=== PATIENT | male | born 1965 | race Caucasian/White ===

== ENCOUNTER 2020-10-10 16:05 | Emergency (ER) | payer OTHER ==
[~2020-10-10] VITALS: Ht 172.7 cm; Wt 102.1 kg
[~2020-10-10 16:05] MED LIST: AMARYL4 MG PO; DOXYCYCLINE 10100 MG PO; GLUCOPHAGE500 MG PO; IBUPROFEN 200200 M1 PO; IBUPROFEN 800800 MG PO; KEFLEX500 MG PO; LEVEMIR SQ; LISINOPRIL20 MG PO; NORCO 5-325 TA1 EACH PO; NORFLEX100 MG PO; PERCOCET 5-3251 EACH PO
[2020-10-10] MEDS ORDERED: NORVASC10 MG PO (16:27)
[2020-10-10] MEDS ORDERED: COZAAR 25 MG TA25 M1 PO (16:27)
[2020-10-10] MEDS ORDERED: TRAMADOL 50 MG50 MG PO (16:28)
[2020-10-10] MEDS ORDERED: CEPHALEXIN500 MG PO (17:37)
[2020-10-10 17:43] VITALS: BP 142/54
== END 2020-10-10 17:44 | disposition home or self-care (01) ==
LOC: M.ERS 16:05
DX: S61.211A Laceration without foreign body of left index finger without damage to nail, initial encounter (principal); I10 Essential (primary) hypertension; E78.00 Pure hypercholesterolemia, unspecified; I48.91 Unspecified atrial fibrillation; G47.30 Sleep apnea, unspecified; E11.9 Type 2 diabetes mellitus without complications; Z79.4 Long term (current) use of insulin; Z88.8 Allergy status to other drugs, medicaments and biological substances; W26.0XXA Contact with knife, initial encounter; Y93.89 Activity, other specified; Y92.89 Other specified places as the place of occurrence of the external cause; Y99.8 Other external cause status